=== PATIENT | male | born 1940 | race Caucasian/White ===

== ENCOUNTER 2017-09-06 09:56 | Day surgery (SDC) | payer MEDICARE, OTHER ==
[2017-08-12 08:15] VITALS: BMI 27.3
[2017-09-06] MEDS ORDERED: ceFAZolin IV 2 gm in Dextrose 1 GM/50 ML BAG IVPB ONE (11:41)
[2017-09-06] MEDS ORDERED: Lidocaine 1% Inj (20ml) ONE (11:41)
[2017-09-06] MEDS ORDERED: Lactated Ringer's 1,000 ML IV ONE ×2 (12:35→14:24)
[2017-09-06] MEDS ORDERED: Midazolam 2 MG/2 ML VIAL ONE (12:37)
[2017-09-06] MEDS ORDERED: Propofol 10 mg/ml Inj (20 ML) ONE (12:37)
[2017-09-06] MEDS: Bupivacaine-Epi 0.25%-1:200,000 PF Inj ONE ×2 (13:05→15:00)
[2017-09-06] MEDS ORDERED: Neostigmine Methylsulfate 3mg/3ml Syringe IV ONE (14:40)
--- NOTE | 2017-09-06 15:21 | PCM.SURG1 ---
Surgeon's Initial Post Op Note - Surgeon's Notes Surgeon: Rosalie Crop Research Scientist: Sallie PGY3, Javan GREGG Type of Anesthesia: General Endo, Local Pre-Operative Diagnosis: Left ingunal hernia Operative Findings: Left direct inguinal hernia w. cord lipoma and intra- abdominal adhesions Post-Operative Diagnosis: same Operation Performed: robotic assisted L TAP inguinal hernia repair w. JEAN CLAUDE Specimen/Specimens Removed: cord lipoma Estimated Blood Loss: EBL {In ML}: 5 Blood Products Given: N/A Drains Used: No Drains Post-Op Condition: Good Date of Surgery/Procedure: 09/06/17 Time of Surgery/Procedure: 15:21
[2017-09-06] MEDS: HYDROmorphone 0.5 mg/0.5 ml ISec IVP PRN ×2 (15:47→16:19)
[2017-09-06] MEDS ORDERED: Labetalol 25mg/5ml Syringe IV STA (16:31)
[2017-09-06 18:04] VITALS: O2SAT 99
[2017-09-06 18:11] VITALS: PULSE 63; RESP 18; TEMP 97
[2017-09-06 18:20] VITALS: BP 150/69
--- NOTE | 2017-09-06 21:19 | OP ---
PROCEDURE DATE: 09/06/2017 PREOPERATIVE DIAGNOSES: 1. Left inguinal hernia. 2. Status post laparoscopic cholecystectomy and status post open right inguinal hernia repair. POSTOPERATIVE DIAGNOSES: 1. Left inguinal hernia. 2. Status post laparoscopic cholecystectomy and status post open right inguinal hernia repair. 3. Extensive postinfectious adhesion of the omentum to the anterior abdominal wall as well as the adhesion of the colon to the pelvis and to the hernial sac. 4. Lipoma of the spermatic cord. PROCEDURE DONE: 1. Robotic left inguinal hernia repair with a mesh. 2. Robotic extensive lysis of adhesion. 3. Robotic excision of lipoma of the cord. SURGEON: The procedure was done by [facility] Dr. Wiggins. ASSISTANTS: CRISTINO Mendez and Patrick Herr. TYPE OF ANESTHESIA: General endotracheal tube anesthesia. ESTIMATED BLOOD LOSS: 10 mL. DRAINS: None. PATHOLOGY: The lipoma of the spermatic cord was sent to the pathology. COMPLICATIONS: None. INTRAOPERATIVE FINDINGS: The patient had large direct left inguinal hernia. The patient also had indirect hernia containing the lipoma of the cord and the patient had pelvic adhesion of the colon and omentum to the pelvic wall. The patient also had omental adhesion to the anterior abdominal wall due to the previous laparoscopic cholecystectomy. DESCRIPTION OF PROCEDURE: On intraoperative steps, this 76-year-old male who was diagnosed with left inguinal hernia and the patient had a previous history of laparoscopic cholecystectomy as well as right open inguinal hernia repair and the patient was consented for robotic left inguinal repair with mesh, brought to the OR, placed supine on operating table. After induction of the anesthesia, abdomen was prepped and draped in usual sterile fashion. The supraumbilical transverse incision was made with the previous incision site. After incising skin and subcutaneous tissue, the peritoneal cavity was entered and Pneumo was created. Another three 8-mm port was placed in the upper abdomen and the robot was brought in. The patient found to have adhesion of the omentum to the anterior abdominal wall. First extensive lysis of adhesion was done and the colon as well as omentum also adheres to the pelvic wall and that lysis of adhesion was done and omentum was incarcerated, that was reduced back after lysis of some adhesion and now the peritoneal incision was made from the left ASIS up to midline, after making incision of the peritoneum, the dissection was carried down medially up to pubic symphysis and diastasis of recti laterally to the lateral abdominal wall. Spermatic cord vessels and vas deferens was and now the patient had a large direct hernial sac that was reduced and the empty sac was stapled with the anterior abdominal wall and defect was closed. After the dissection was carried down inferiorly up to peritoneal reflection and the mesh was implanted, the lipoma of the sac was excised and sent to the table for pathology and after proper implantation of the mesh, the peritoneum was sutured with 9 inch V-Loc suture. All the instruments were taken out. The robot was undocked. All the ports were taken out under vision. Pneumo was deflated. Umbilical port site was closed using 2 layers, fascia with 0 Vicryl interrupted sutures, skin with a 4-0 Monocryl, and dry sterile dressing was applied. The anesthesia with TAP block for the patient after operation. The patient was sent to the postanesthesia care unit in stable condition. Uday Wiggins MD
== END 2017-09-06 21:50 | disposition home or self-care (01) ==
LOC: C.SDS 09:56
PROVIDERS: ATTEND Surgery Surgical Critical Care
DX: K40.90 Unilateral inguinal hernia, without obstruction or gangrene, not specified as recurrent (principal)
CPT/HCPCS: 49650; 55559; 82948; 88304; C1781; J0690; J1170; J2250; J2405; J2704; J2710; J3010; J7120; S2900

== ENCOUNTER 2017-09-07 14:02 | Emergency (ER) | payer MEDICARE, OTHER ==
[2017-09-07 14:02] VITALS: BMI 27.3
[2017-09-07 14:07] VITALS: RESP 20; O2SAT 95
[2017-09-07 15:39] LABS: BASO % 0.5 % (0.0-2.0); EOS % 0.2 % (0.0-4.0); HEMATOCRIT 38.4 % (35.0-51.0); LYMPH # 1.3 K/uL (1.0-4.3); MEAN CELL VOLUME 77.2 fL (80.0-94.0); MEAN CORPUSCULAR HEMOGLOBIN 25.7 pg (27.0-31.0); MEAN CORPUSCULAR HGB CONC 33.3 g/dL (33.0-37.0); MEAN PLATELET VOLUME 10.4 fL (7.2-11.7); MONO % 10.2 % (0.0-10.0); RED CELL DISTRIBUTION WIDTH 15.4 % (11.5-14.5); WHITE BLOOD COUNT 9.8 K/uL (4.8-10.8)
[2017-09-07 15:43] LABS: RBC URINE 3 /hpf (0-3); URINE BILIRUBIN NEGATIVE (NEGATIVE); URINE BLOOD NEGATIVE (NEGATIVE); URINE COLOR Yellow (YELLOW); URINE GLUCOSE (UA) 1+ mg/dL (Normal); URINE KETONE NEGATIVE (NEGATIVE); URINE LEUKOCYTE ESTERASE NEG Leu/uL (Negative); URINE PROTEIN NEGATIVE (NEGATIVE); URINE UROBILINOGEN NORMAL mg/dL (0.2-1.0); WBC URINE 1 /hpf (0-5)
[2017-09-07 15:51] LABS: CHLORIDE 100 mmol/L (98-107); SODIUM 134 mmol/L (132-148)
[2017-09-07 15:54] LABS: AST/SGOT 27 U/L (17-59); BILIRUBIN,TOTAL 1.1 mg/dL (0.2-1.3); BLOOD UREA NITROGEN 16 mg/dL (9-20); CARBON DIOXIDE 23 mmol/L (22-30); GFR AFRICAN-AMERICAN > 60; TOTAL PROTEIN 7.7 g/dL (6.3-8.3)
[2017-09-07 15:55] LABS: ALKALINE PHOSPHATASE 29 U/L (38-126); ALT/SGPT 20 U/L (21-72); CALCIUM 8.8 mg/dl (8.6-10.4); GLUCOSE,RANDOM 111 mg/dL (75-110)
--- NOTE | 2017-09-07 16:08 | C.PDOC ---
History Of Present Illness 76 year old male presents to the ED for evaluation of abdominal discomfort associated with urinary retention which began yesterday. Patient underwent left- inguinal hernia repair surgery yesterday by Dr. Wiggins. There were no complications during surgery and patient was discharged home. After he went home , patient began experiencing abdominal discomfort associated with difficulty urinating throughout the night. Patient called Dr. Wiggins's office today, and was advised to report to the ED for further evaluation. Patient denies fever , chills, nausea, vomiting. Time Seen by Provider: 09/07/17 14:53 Chief Complaint (Nursing): Male Genitourinary History Per: Patient History/Exam Limitations: no limitations Onset/Duration Of Symptoms: Hrs Current Symptoms Are (Timing): Still Present Associated Symptoms: denies: Fever, Chills, Nausea, Vomiting Additional History Per: Patient Past Medical History Reviewed: Historical Data, Nursing Documentation, Vital Signs Vital Signs: Last Vital Signs Temp 98.0 F 09/07/17 16:18 Pulse 86 09/07/17 16:18 Resp 20 09/07/17 16:18 BP 165/70 H 09/07/17 16:18 Pulse Ox 95 09/07/17 16:59 - Medical History PMH: Gall Bladder Disease, HTN Denies: Chronic Kidney Disease Surgical History: CABG (2008-BYPASS(5)), Cholecystectomy, Endoscopy Family History: States: Unknown Family Hx - Social History Hx Alcohol Use: No Hx Substance Use: No - Immunization History Hx Tetanus Toxoid Vaccination: No Hx Influenza Vaccination: Yes Hx Pneumococcal Vaccination: Yes Review Of Systems Constitutional: Negative for: Fever, Chills Gastrointestinal: Positive for: Abdominal Pain. Negative for: Nausea, Vomiting Genitourinary: Positive for: Other (urinary retention ) Physical Exam - Physical Exam Appears: Non-toxic, No Acute Distress Skin: Normal Color, Warm, Dry Head: Atraumatic, Normacephalic Eye(s): bilateral: Normal Inspection Oral Mucosa: Moist Chest: Symmetrical, No Deformity, No Tenderness Cardiovascular: Rhythm Regular, No Murmur Respiratory: Normal Breath Sounds, No Rales, No Rhonchi, No Wheezing Gastrointestinal/Abdominal: Soft, No Tenderness, No Guarding, No Rebound, Other (healing surgical incision scar, clean, dry, intact, no abscess or discharge noted. ) Male Genital: No Testicular Tenderness, No Testicular Swelling, No Inguinal Swelling, No Scrotal Swelling, Other (surgical site is clean, dry and intact ) Extremity: Normal ROM, Capillary Refill (less than 2 seconds ) Neurological/Psych: Oriented x3, Normal Speech, Normal Cognition Gait: Steady ED Course And Treatment - Laboratory Results Result Diagrams: 09/07/17 15:36 09/07/17 15:36 O2 Sat by Pulse Oximetry: 95 (on RA ) Pulse Ox Interpretation: Normal Medical Decision Making Medical Decision Making: Initial assessment: urinary retention Plan: * bloodwork * urinalysis * bladder scan * reassess and disposition Progress: bloodwork and UA ordered and reviewed. Bladder scan shows 535cc of urine. Mcginnis catheter inserted successfully on first attempt. Return clear yellow urine into mcginnis bag. Patient tolerated well with instant relief. Case discussed with Dr. Casanova, who states patient is stable for discharge. Patient is informed that Dr. Casanova's office will follow up with him tomorrow. Patient is advised to follow up with Dr. Dee (urology) within 1-2 days for further evaluation. Disposition Discussed With : Uday Wiggins Comment: follow up with urology, maintain leg bag and mcginnis Doctor Will See Patient In The: Office Counseled Patient/Family Regarding: Diagnosis, Rx Given - Disposition Referrals: Nurys Dee MD [Staff Provider] - Disposition: HOME/ ROUTINE Disposition Time: 16:07 Condition: IMPROVED Additional Instructions: follow up with urology in 2 days call to make an appointment take medication as prescribed return to hospital if symptoms worsens or progress Prescriptions: Tamsulosin HCl [Flomax] 0.4 mg PO DAILY #7 cap.er.[id number] Instructions: Urinary Retention in Men (ED) Forms: [facility] (South Korean), General Discharge Instructions, Gen Discharge Inst Indonesian, [facility] (Indonesian) - Clinical Impression Clinical Impression: Urinary retention - Scribe Statement The provider has reviewed the documentation as recorded by the Scribe (Lorena Leone) Provider Attestation: All medical record entries made by the Scribe were at my direction and personally dictated by me. I have reviewed the chart and agree that the record accurately reflects my personal performance of the history, physical exam, medical decision making, and the department course for this patient. I have also personally directed, reviewed, and agree with the discharge instructions and disposition.
[2017-09-07 16:19] VITALS: BP 165/70; PULSE 86; TEMP 98
== END 2017-09-07 18:20 | disposition home or self-care (01) ==
LOC: C.ER 14:02
DX: R33.9 Retention of urine, unspecified (principal); I10 Essential (primary) hypertension; Z87.891 Personal history of nicotine dependence